=== PATIENT | male | born 1940 | race Caucasian/White ===

== ENCOUNTER 2017-04-14 16:38 | Inpatient (IN) | payer MEDICARE, OTHER ==
[~2017-04-14] VITALS: Ht 160 cm; Wt 90.7 kg
[2017-04-14 16:59] VITALS: BP 129/89; PULSE 102; RESP 12; O2SAT 99
--- NOTE | 2017-04-14 19:06 | ED.REPORT ---
HPI- Male Date of Service April 14, 2017 ED Provider: Jos Joiner MD The pt is a 77 y/o male w/ a hx of HTN and mild hyperlipidemia presenting to the ED complaining of increased urinary frequency onset 4 days ago. He only experiences this during the night and is normal during the day. He also reports experiencing chills (onset this afternoon), fever, and hematuria. He takes 25 mg of atenolol and baby aspirin daily, and took two Tylenol this morning. He had a biopsy of his prostate done and was told a sample had cancer by a Dr. Ware, urologist. Denies, dysuria, cough, SOB, nausea, vomiting, back pain, changes in eating or drinking habits. He has not experienced anything like this before. Nursing Notes Stated Complaint: FEVER/SHAKING/BLOOD IN URINE Chief Complaint: Increased urinary frequency Nursing Notes Reviewed: Yes ([employer], meds not reconciled) Allergies: Coded Allergies: No Known Allergies (Unverified , 04/14/17) General Time Seen by MD: 19:01 Chief Complaint Urinary frequency (Increased) Hx Obtained From: Patient Arrived By: Walk-in Onset Occurred: 4 days ago Recent Healthcare: No recent hospitalization, Recent doctor visit Similar Sx Previous: No Past Medical History Past Medical History Obesity Hypertension Mild hyperlipidemia History of elbow joint displacement History of tubular adenoma/colon polyp in 2002 Past Surgical History Status post colonoscopy September 2010 with diverticulosis left: Smoking History Never Smoker Social History Alcohol Use: Denies alcohol use Other Social History: Good social support Ambulatory Status Independent Review of Systems Denies changes in eating or drinking habits Constitutional: Reports: Chills, Fever GI: Denies: Vomiting Male: Reports Hematuria, Reports Urinary frequency (Increased), Denies Dysuria Musculoskeletal: Denies: Back pain Complete sys rev & neg: except as marked. Respiratory: Denies: Non-productive cough, Shortness of breath Physical Exam Initial Vital Signs Vital Signs (First) Date Time Temp Pulse Resp B/P Pulse Ox O2 Delivery O2 Flow Rate FiO2 04/14/17 16:59 38.4 102 12 129/89 99 Room Air Initial VS: Reviewed, Vital signs abnormal (febrile, tachycardic) Male Genitourinary: No mass, No hernia General/Constitutional: Awake, Alert Non toxic Appears well despite having shaking rigors Abdomen: Atraumatic, Soft, Non-tender Skin: Atraumatic, Color NL, No rash, Warm, Dry Head / Eyes: Atraumatic, Normocephalic ENT: Atraumatic, Airway patent Neck: Atraumatic, Supple, Full range of motion Respiratory / Chest: Atraumatic, Breath sounds NL, Breath sounds = bilat, No respiratory distress, No rales, No rhonchi, No wheezing Cardiovascular: Regular rhythm, Heart sounds NL, Peripheral circulation NL Heart Rate / Rhythm: Positive: Tachycardia (Mild) Back: Atraumatic, Full range of motion Neurologic: Oriented X3, Speech NL Mentating normally Psychiatric: Affect NL, Mood NL Interpretation & Diagnostics Lab Results Interpretation Result Diagram: 04/14/17 1937 04/14/17 193 Test 04/14/17 19:26 04/14/17 19:37 04/14/17 20:09 Urine Color Yellow (YELLOW) Urine Appearance Clear (CLEAR,HAZY) Urine pH 5.5 (5.0-8.0) Urine Specific [place] 1.020 (1.003-1.035) Urine Protein 30mg/dL (NEG,TRACE) Urine Glucose (UA) Negativemg/dL (NEGATIVE) Urine Ketones Tracemg/dL (NEGATIVE) Urine Occult Blood Moderate (NEGATIVE) Urine Nitrite Negative (NEGATIVE) Urine Bilirubin Negative (NEGATIVE) Urine Urobilinogen Normalmg/dL (NORMAL) Urine Leukocyte Esterase Negative (NEGATIVE) Urine RBC 3-10/hpf (0-2) Urine WBC 0-5/hpf (0-5) Urine Epithelial Cells Few/hpf (NONE-MOD) Urine Crystals None seen (NONE SEEN) Urine Bacteria Few/hpf (NONE-FEW) Urine Hyaline Casts None/lpf (NONE) Urine Granular Casts None seen (NONE SEEN) Urine Waxy Casts None seen (NONE SEEN) Urine Red Blood Cell Casts None seen (NONE SEEN) Urine White Blood Cell Casts None seen (NONE SEEN) Urine Mucus Present (None Seen) Urine Trichomonas None seen (NONE SEEN) Urine Yeast None (NONE SEEN) Urinalysis Comment Amorphous sediment Urine Culture Reflexed Not indicated White Blood Count 12.8th/mm3 (3.8-10.1) Red Blood Count 5.17mil/mm3 (4.40-5.80) Hemoglobin 16.0g/dL (13.8-17.2) Hematocrit 47.8% (41.0-50.0) Mean Corpuscular Volume 92.5fL (81-100) Mean Corpuscular Hemoglobin 30.9pg (27.0-35.0) Mean Corpuscular Hemoglobin Concent 33.5% (32.0-37.0) Red Cell Distribution Width 12.8% (12.3-15.4) Platelet Count 206bil/L (150-400) Neutrophils (%) (Auto) 74.9% (40-74) Lymphocytes (%) (Auto) 11.5% (14-46) Monocytes (%) (Auto) 12.7% (4-12) Eosinophils (%) (Auto) 0.2% (0-5) Basophils (%) (Auto) 0.5% (0-3) Prothrombin Time 11.2sec (8.1-12.5) Prothromb Time International Ratio 1.05ratio Sodium Level 133mEq/L (134-144) Potassium Level 4.4mEq/L (3.5-5.2) Chloride Level 94mEq/L (97-108) Carbon Dioxide Level 22mmol/L (18-29) Blood Urea Nitrogen 29mg/dL (8-27) Creatinine 1.31mg/dL (0.76-1.27) Estimat Glomerular Filtration Rate 56mL/min (>59) Glucose Level 122mg/dL (60-99) Lactic Acid Level 2.5mmol/L (0.4-2.0) Calcium Level 9.2mg/dL (8.5-10.1) Magnesium Level 2.0mg/dL (1.6-2.6) Total Bilirubin 0.4mg/dL (0.0-1.2) Aspartate Amino Transf (AST/SGOT) 27U/L (0-50) Alanine Aminotransferase (ALT/SGPT) 18U/L (0-44) Alkaline Phosphatase 64U/L (25-160) Total Protein 7.9g/dL (6.4-8.4) Albumin 3.9g/dL (3.4-5.0) Lipase 11U/L (13-60) Hold Brian Top Tube Received (Received) Lab Results Interpretation: CBC leukocytosis CMP mild renal insufficiency, uncertain baseline Lactic acid elevated Blood cultures pending Urinalysis without overt markers of jonathan infection ECG Interpretation ECG Interpretation: Rate 102 sinus tachycardia No acute ischemic changes Time: 19:48 Interpreted by: ED physician X-Ray Chest Interpretation Chest Xray Interpretation: IMPRESSION: No acute cardiopulmonary disease process. Dictated by: Tere Sterling MD, PhD on 04/14/2017 at 19:49 Approved by: Tere Sterling MD, PhD on 04/14/2017 at 19:50 View: Portable, 1 view Interpretation / Wet Read by: Interpret - Radiologist Re-Eval/Medical Decision Med Decision/Clinical Course This is a pleasant 77-year-old male presents with some urinary symptoms followed by the onset of jonathan rigors. Patient went to urgent care, and was having rigors and a fever there and was sent to the ED. When I did interview him he is having rigors during the interview. Despite this , he does not actually appear toxic. He is still energetic despite the rigors and hoping to go home. His lungs are clear, heart tones are normal, he denies nausea, vomiting abdominal or back pain. He has no other clinical source evident. No rashes, no respiratory symptoms. Workup was pursued. Her blood work was notable for both leukocytosis, renal insufficiency, and an elevated lactic acid. I markers for developing sepsis in a patient with jonathan fever and rigors. This highly suspicious for a urinary source, but the formal urinalysis is without clear markers of infection. A chest x-ray is negative, and given the urinary symptoms a bladder scan was obtained, the patient has less than 100 mL post void residual was no evidence of urinary retention. A CT KUB is being obtained. Given all of the laboratory markers, the ongoing rigors, and the absence of a definitive source-I recommended admission and empiric antibiotic coverage. The [facility] sepsis of unknown source protocol was employed. The patient is being admitted for continued management. He received IV fluids and Tylenol in the department and is looking in clinically improved further with the resolution of the rigors at time of admission. CT KUB was negative for intra-abdominal pathology, but is being read as suspicious for a couple areas at the base of the lungs with patchy infiltrates suspicious for pneumonia-the patient avidly denies any respiratory symptoms, so the clinical reliability of this is a focus of infection remains suspect Source of Hx: Old records Re-Evaluation/Progress : Time of Eval: 21:38 Re-Evaluation/Progress Note: Pt rechecked. Informed pt of need for admission. Pt understands and agrees with plan for admission. All questions addressed. Consultation : Referral / Consult Name: Devin Fernandes MD Consulted With: Hospitalist Call Returned at: 21:31 Surgery Manager: Will see patient, Agrees with eval, Agrees with plan, Accepts admit Differential Diagnosis: Negative: Abrasion, Abscess, Bladder outlet obstruct, Cellulitis, Laceration, Necrotizing fasciitis, Syphilis, Testicular torsion left , Torsion, appendix testis, Urinary retention, Urolithiasis Counseled Regarding: Diagnosis, Lab results, Need for follow-up, When/why to return to ED Discharge & Departure Impression: Primary Impression: Sepsis Sepsis type: sepsis due to unspecified organism Qualified Code: A41.9 - Sepsis, unspecified organism Additional Impressions: Rigors Elevated lactic acid level Acute kidney injury Fever and chills Pulmonary infiltrate present on computed tomography Disposition: ADMITTED TO HOSPITAL Discharge Condition All VS Reviewed: Yes Condition: Stable Referrals: Dino Murguia MD (PCP) Scribe Attestation Portions of this note were transcribed by Patricio Grubbs. I, Dr. Joiner personally performed the history, physical exam and medical decision-making; I reviewed and confirmed the accuracy of the information in the transcribed note. Signed by : Irina Segundo, 04/14/17 and 2111. copies to: Dino Murguia MD, Matthew F MD April 14, 2017 19:06 Patricio Grubbs April 14, 2017 20:59
[2017-04-14] MEDS ORDERED: cefTRIAXone Inj 2,000 MG in Dextrose 5% Minibag Plus 50 ML IV ONE (19:20)
--- NOTE | 2017-04-14 19:51 | DRSVH ---
PROCEDURE: X-RAY CHEST ONE VIEW, PORTABLE ([id number]) INDICATIONS: fever TECHNIQUE: One view of the chest was acquired. COMPARISON: None. FINDINGS: Surgical changes and devices: None. Lungs and pleura: No pleural effusions or pneumothorax. Lungs are clear. Mediastinum: Mediastinal contours appear normal. Heart size is normal. Bones and chest wall: No suspicious bony lesions. Overlying soft tissues appear unremarkable. IMPRESSION: No acute cardiopulmonary disease process. Dictated by: Tere Sterling MD, PhD on 04/14/2017 at 19:49 Approved by: Tere Sterling MD, PhD on 04/14/2017 at 19:50
[2017-04-14 19:52] LABS: BASOPHILS % (AUTO) 0.5 % (0-3); EOSINOPHILS % (AUTO) 0.2 % (0-5); MONOCYTES % (AUTO) 12.7 % (4-12); Mean Corpuscular Hemoglobin 30.9 pg (27.0-35.0); Mean Corpuscular Volume 92.5 fL (81-100); NEUTROPHILS % (AUTO) 74.9 % (40-74); Platelet Count 206 bil/L (150-400)
[2017-04-14 19:54] LABS: APPEARANCE,URINE CLEAR (CLEAR,HAZY); COLOR,URINE YELLOW (YELLOW); OCCULT BLOOD,URINE MODERATE (NEGATIVE); PH,URINE 5.5 (5.0-8.0); UROBILINOGEN,URINE NORMAL (NORMAL)
[2017-04-14 20:09] LABS: INR 1.05 ratio
[2017-04-14 21:07] VITALS: BP 137/88; PULSE 104; RESP 18; O2SAT 95
[2017-04-14] MEDS ORDERED: Lidocaine 2% 6mL Topical Jelly TOPICAL ONE (21:20)
[2017-04-14] MEDS ORDERED: Vancomycin Dose per Pharmacist XX ONE (21:25)
[2017-04-14] MEDS ORDERED: Doxycycline Inj 100 MG in Dextrose 5% 100 ML IV ONE ×2 (21:25→22:15)
[2017-04-14] MEDS ORDERED: Tobramycin per Pharmacist XX ONE (21:25)
[2017-04-14] MEDS ORDERED: Piperacillin-Tazo 3.375 Gm Inj 3.375 GM in Dextrose 5% Minibag Plus 50 ML IV ONE (21:25)
[2017-04-14] MEDS ORDERED: Ondansetron 2 mg/mL 2 mL Inj IVPUSH PRN (21:35)
[2017-04-14] MEDS ORDERED: Alum-Mag Hydrox-Simeth 30 mL Suspension PO PRN (21:35)
[2017-04-14] MEDS ORDERED: Vancomycin Inj 1,750 MG in 0.9% Sodium Chloride 500 ML IV ONE (21:35)
[2017-04-14] MEDS ORDERED: Polyethylene Glycol (PEG) 17 Gm Powder PO PRN (21:35)
[2017-04-14] MEDS ORDERED: 0.9% Sodium Chloride 1,000 ML IV SCH (21:35)
[2017-04-14] MEDS ORDERED: Vancomycin Dose per Pharmacist XX SCH (21:35)
[2017-04-14] MEDS ORDERED: TOBRAMYCIN IV SCH (21:40)
[2017-04-14] MEDS ORDERED: [UNRECOGNIZED DRUG - REMARK] XX ONE (21:40)
[2017-04-14] MEDS ORDERED: [UNRECOGNIZED DRUG - REMARK] XX SCH (21:40)
[2017-04-14] MEDS ORDERED: DEXTROSE 5% IV SCH (21:40)
--- NOTE | 2017-04-14 21:46 | DRSVH ---
PROCEDURE: CT KUB ([id number]) INDICATIONS: pain, fever TECHNIQUE: Noncontrast 5 mm thick sections acquired from the diaphragms to the symphysis. 5 mm thick coronal an d sagittal reformats were then performed. For radiation dose reduction, the following was used: aut omated exposure control, adjustment of mA and/or kV according to patient size. COMPARISON: [facility], CR, XR CHEST 1VW (PORTABLE), 04/14/2017, 19:06. FINDINGS: Image quality: Excellent. Lung bases: Small patchy airspace opacity noted in the visualized right lung base suspicious for pne umonia. Heart size is normal. Urinary system: Both kidneys are normal in size. No kidney stones. No hydronephrosis or perinephri c fat stranding. Both ureters appear non-dilated throughout their expected courses. Bladder wall th ickness is normal; no calcified bladder stones. Prostate gland is enlarged. Other solid organs: Liver and spleen are normal in size. All hypoattenuating lesions noted in the li elsa which may represent cysts, however lesions cannot be definitively characterize without the benefi t of intravenous contrast. Gallbladder is within normal limits. Pancreas is normal in contours. No adrenal nodules. Peritoneum and bowel: Unenhanced bowel loops demonstrate normal wall thickness and caliber. Numerous diverticuli noted in the colon without evidence of diverticulitis. No free fluid or air. The appendi x is normal. Nodes and vessels: No retroperitoneal or mesenteric adenopathy by size criteria. Aorta and inferior vena cava are normal in caliber. Scattered atherosclerotic calcifications are noted in the abdominal and pelvic vasculature. Abdominal wall: Fat containing umbilical ventral hernia noted. Pelvis: No free pelvic fluid. No adenopathy. Small bilateral fat containing inguinal hernias. Bones: No suspicious bony lesions. No vertebral body compression fractures. Spine degenerative disc disease and facet arthropathy are noted. IMPRESSION: 1. No renal stones or hydronephrosis. 2. Patchy airspace opacities in the right lung base suspicious for pneumonia. 3. Indeterminate low attenuating hepatic lesions. Dictated by: Tere Sterling MD, PhD on 04/14/2017 at 21:38 Approved by: Tere Sterling MD, PhD on 04/14/2017 at 21:44
[2017-04-14 23:04] VITALS: BP 125/78; PULSE 110; RESP 18; O2SAT 95
[2017-04-14 23:43] VITALS: BP 128/85; PULSE 102; RESP 18; O2SAT 94
[2017-04-15] VITALS (11 sets, daily range): BP systolic 94–173; BP diastolic 61–93; PULSE 87–160; RESP 18–30; O2SAT 91–96
[2017-04-15] MEDS: 0.9% Sodium Chloride 1,000 ML IV SCH ×3 (00:01→13:35)
[2017-04-15] MEDS: Sodium Chloride LOK Flush 10 mL Syringe IVFLUSH SCH ×3 (00:30→16:30)
--- NOTE | 2017-04-15 01:51 | PCM.HPMED ---
Subjective Date of Service April 14, 2017 Primary Provider: Admitting Physician: Primary Care Physician: Dino Murguia MD Attending Physician: Admit Status: From the Emergency Department, Full Admit, Remote Telemetry Chief Complaint: Chills with urinary symptoms History of Present Illness: Lucio Marie is a 77 y/o male with Hypertension, Hyperlipidemia and BPH presenting to [facility] emergency department complaining of increased urinary frequency onset 4 days ago. Main issue is difficulty initiating a stream when he tries to urinate. The symptoms are persistent with nocturia and polyuria. He only experiences this during the night and is normal during the day. Associated symptoms include chills (onset this afternoon), fever, and hematuria. He took some tylenol with help a little He had a biopsy of his prostate done and was told a sample had cancer by a Dr. Ware, urologist. He was also told he has a enlarged prostate. Denies any weight loss. Case discussed with Dr Joiner, meeting sepsis criteria due to leukocytosis, tachycardia and Fever. IV fluids and broad spectrum antibiotics initiated. Review of Systems: Pertinent positives as noted in HPI. All other systems were reviewed and are negative Allergies Coded Allergies: No Known Allergies (Unverified , 04/14/17) Home Medications From [facility], not yet confirmed Lucio Marie [id number] 1940 04/14/2017 03:45 PM 12/01 aspirin 81 mg Tab, Delayed Release take 1 tablet (81MG) by ORAL route every day ATENOLOL 50MG TAB TAKE ONE-HALF TABLET BY MOUTH ONCE DAILY FOR HEART garlic 400 mg tablet take one a day Multi-Day tablet take 1 tablet by oral route every day with food Niacin Flush Free 400 mg niacin (500 mg) capsule take 1 capsule orally daily. omega-3 fatty acids-fish oil 340 mg-1,000 mg capsule take 1 by Oral route every day TRIAMT/HCTZ 37.5-25MG TAB TAKE ONE-HALF TABLET BY MOUTH ONCE DAILY FOR HIGH BLOOD PRESSURE. Vitamin D3 400 unit tablet take 1 tab by oral route 1 time a day vitamin E 400 unit capsule take 1 capsule orally daily. PMH Hypertension Hyperlipidemia Benign Prostatic Hypertrophy Obesity . Surgical History Tonsillectomy Polypectomy Family History Father had [place] age 57 Mother had emphysema Social History Hx Alcohol Use: No Hx Substance Use: No Hx Tobacco Use: No Smoking Status: Never Smoker Living Arrangement: with Family (with ) Exam Vital Signs Vital Sign - Last Date Time Temp Pulse Resp B/P Pulse Ox O2 Delivery O2 Flow Rate FiO2 04/14/17 21:07 37.4 104 18 137/88 95 Room Air Exam General: Alert, Oriented X3, Cooperative, No acute Distress Eyes: PERRLA, Scleral Anicteric Mouth: Mouth Normal, Mucous Membranes Moist/[place] Neck: Supple, no Thyromegaly, trachea central. Chest & Lungs: Clear to auscultation & percussion, No adventitious breath sounds, no crackles, no wheeze Cardiovascular: Normal S1, Normal S2, No Murmurs/Rubs/Gallops, Regular Rate/ Rhythm (No JVD, no peripheral edema) Pulses: Radial (present and equal), Dorsalis Pedi (present and equal) Abdomen: Soft, Non-tender, Non-distended, Normoactive bowel tones. Musculoskeletal: Unremarkable. Normal range of motion, no swollen or erythematous joints Extremities: No edema, no cyanosis, no clubbing. Skin: No rashes. Warm and dry, no erythematous areas Neurological: Grossly neurologically intact, Normal Speech, Sensation Intact Lymphatic: Lymph nodes Cervical and Axillary not palpable. Lab and Diagnostics Labs Laboratory Tests Test 04/14/17 19:26 04/14/17 19:37 04/14/17 20:09 Urine Color Yellow (YELLOW) Urine Appearance Clear (CLEAR,HAZY) Urine pH 5.5 (5.0-8.0) Urine Specific [place] 1.020 (1.003-1.035) Urine Protein 30mg/dL (NEG,TRACE) Urine Glucose (UA) Negativemg/dL (NEGATIVE) Urine Ketones Tracemg/dL (NEGATIVE) Urine Occult Blood Moderate (NEGATIVE) Urine Nitrite Negative (NEGATIVE) Urine Bilirubin Negative (NEGATIVE) Urine Urobilinogen Normalmg/dL (NORMAL) Urine Leukocyte Esterase Negative (NEGATIVE) Urine RBC 3-10/hpf (0-2) Urine WBC 0-5/hpf (0-5) Urine Epithelial Cells Few/hpf (NONE-MOD) Urine Crystals None seen (NONE SEEN) Urine Bacteria Few/hpf (NONE-FEW) Urine Hyaline Casts None/lpf (NONE) Urine Granular Casts None seen (NONE SEEN) Urine Waxy Casts None seen (NONE SEEN) Urine Red Blood Cell Casts None seen (NONE SEEN) Urine White Blood Cell Casts None seen (NONE SEEN) Urine Mucus Present (None Seen) Urine Trichomonas None seen (NONE SEEN) Urine Yeast None (NONE SEEN) Urinalysis Comment Amorphous sediment Urine Culture Reflexed Not indicated White Blood Count 12.8th/mm3 (3.8-10.1) Red Blood Count 5.17mil/mm3 (4.40-5.80) Hemoglobin 16.0g/dL (13.8-17.2) Hematocrit 47.8% (41.0-50.0) Mean Corpuscular Volume 92.5fL (81-100) Mean Corpuscular Hemoglobin 30.9pg (27.0-35.0) Mean Corpuscular Hemoglobin Concent 33.5% (32.0-37.0) Red Cell Distribution Width 12.8% (12.3-15.4) Platelet Count 206bil/L (150-400) Neutrophils (%) (Auto) 74.9% (40-74) Lymphocytes (%) (Auto) 11.5% (14-46) Monocytes (%) (Auto) 12.7% (4-12) Eosinophils (%) (Auto) 0.2% (0-5) Basophils (%) (Auto) 0.5% (0-3) Prothrombin Time 11.2sec (8.1-12.5) Prothromb Time International Ratio 1.05ratio Sodium Level 133mEq/L (134-144) Potassium Level 4.4mEq/L (3.5-5.2) Chloride Level 94mEq/L (97-108) Carbon Dioxide Level 22mmol/L (18-29) Blood Urea Nitrogen 29mg/dL (8-27) Creatinine 1.31mg/dL (0.76-1.27) Estimat Glomerular Filtration Rate 56mL/min (>59) Glucose Level 122mg/dL (60-99) Lactic Acid Level 2.5mmol/L (0.4-2.0) Calcium Level 9.2mg/dL (8.5-10.1) Magnesium Level 2.0mg/dL (1.6-2.6) Total Bilirubin 0.4mg/dL (0.0-1.2) Aspartate Amino Transf (AST/SGOT) 27U/L (0-50) Alanine Aminotransferase (ALT/SGPT) 18U/L (0-44) Alkaline Phosphatase 64U/L (25-160) Total Protein 7.9g/dL (6.4-8.4) Albumin 3.9g/dL (3.4-5.0) Lipase 11U/L (13-60) Hold Brian Top Tube Received (Received) Microbiology 04/14/17 Blood Culture, Received Pending Result Diagram: 04/14/[id number] X-Rays, CTs and MRIs X-RAY CHEST ONE VIEW, PORTABLE 04/14 IMPRESSION: No acute cardiopulmonary disease process. Dictated by: Tere Sterling MD, PhD on 04/14/2017 at 19:49 Approved by: Tere Sterling MD, PhD on 04/14/2017 at 19:50 CT KUB 04/14 IMPRESSION: 1. No renal stones or hydronephrosis. 2. Patchy airspace opacities in the right lung base suspicious for pneumonia. 3. Indeterminate low attenuating hepatic lesions. Dictated by: Tere Sterling MD, PhD on 04/14/2017 at 21:38 Approved by: Tere Sterling MD, PhD on 04/14/2017 at 21:44 Assessment & Plan Lucio Marie is a 77 y/o male with Hypertension, Hyperlipidemia and BPH presenting to [facility] emergency department complaining of increased urinary frequency 1. Severe Sepsis. Present on admission Meeting criteria with Leukocytosis, Fever and tachycardia with a urinary source. Lactic acidosis indicates organ dysfunction - early antibiotics initiation - IV fluids resuscitations with Sepsis protocol - close monitoring of vitals 2. Possible Urinary infection or Acute Prostatitis. Present on admission - continue empiric antibiotics with Vancomycin and Zosyn - Patient received Doxycycline which will be held - Blood cultures, Urine cultures - consider Infection disease and Urology consult 3 Lactic acidosis. Present on admission Due to tissue hypoxia from sepsis - trending till normal 4. Hypertension. Chronic - holding all antihypertensive till sepsis resolves to avoid hypotension - Acetaminophen as needed for mild pain/fever/headache - Bowel regimen as needed - Antiemetic as needed Patient admitted under inpatient status with expected length of stay > 2 midnights for severity of present symptoms, complexities of treatment plan and risk for adverse event . Resuscitation Status: CPR: Attempt Resuscitation Devin Fernandes MD April 14, 2017 21:40
[2017-04-15] MEDS ORDERED: Piperacillin-Tazo 3.375 Gm Inj 3.375 GM in Dextrose 5% Minibag Plus 50 ML IV ONE (02:23)
[2017-04-15] MEDS: Heparin 5,000 Unit/mL Inj SUBQ SCH ×3 (02:29→17:10)
[2017-04-15] MEDS ORDERED: HYDR25TA4 PO (03:14)
[2017-04-15] MEDS ORDERED: vitamin D PO (03:14)
[2017-04-15] MEDS ORDERED: OMEG500C PO (03:14)
[2017-04-15] MEDS ORDERED: Niacin PO (03:14)
[2017-04-15] MEDS ORDERED: VITA400C64 PO (03:14)
[2017-04-15] MEDS ORDERED: MULT-544 PO (03:14)
[2017-04-15] MEDS ORDERED: ASPI-973 PO (03:14)
[2017-04-15] MEDS ORDERED: ATEN50TA PO (03:14)
[2017-04-15] MEDS ORDERED: potassium PO (03:14)
[2017-04-15] MEDS ORDERED: TRIA1TAB3 PO (03:18)
--- NOTE | 2017-04-15 06:21 | NUR ---
Admit Note/Tele Pt arrived to room 3020 at around 2330, denied pain and appeared to be in no distress. Per engineering technician on arrival pt's tele Afib 130s-150s, pt denied symptoms, MD aware. Per MT, pt converted back to SR soon after w/ rate 100s and also converted back and forth a couple times in night w/ rate in 100s. Last couple times reassessed pt has been STach 100s. Continues to deny symptoms of this. BP stable, fluids and antibiotics started per orders. Pt A&O and able to provide admit information though was unsure of some meds and doses. Pt states can bring med containers to confirm in morning. External med history also used for reference.
--- NOTE | 2017-04-15 06:54 | PCM.CONPHA ---
Subjective Date of Service: April 15, 2017 Requesting Provider: Devin Fernandes MD sepsis History of Present Illness Sepsis, possible UTI or prostatitis Reason for Pharmacy Consult: Vancomycin Dosing Objective Assessment/Plan Assessment/Plan A/ - 77 y/o male patient admitted in late last night for sepsis, possible related to UTI or prostatitis, required Vancomycin therapy for empirical coverage - Afebrile, shocky. WBC: 12.8, blood cultures (x2) pending - In ED, received loading dose of Vancomycin 1750mg iv @ 0000 04/15, and one time dose of Doxycycline, along with Zosyn which to be continued - Wt: 89.9kg, ht: 160cm, SCr: 1.31 mg/dL (unknown baseline), estimated clearance ~ 49ml/min, BMI: 34 kg/m2, Vd~54 L - IVF @125 ml/hr P/ - Give Vancomycin 750mg iv q12h. Trough level ordered before 3rd dose @2330 / 20 Pharmacy will continue to follow and make necessary adjustment according to patient's clinical responses. Thank you for consulting clinical pharmacy in the care of this patient Db Dockery PharmD, [facility] Conrado Dockery April 15, 2017 06:54
--- NOTE | 2017-04-15 10:35 | NUR ---
Social Work: Initial Assessment D: EMR reviewed. Pt is a 77 y/o male admitted for fever, elevated lactic acid per H&P. SW met with pt at bedside to conduct initial assessment. Pt was alert and oriented x3. SW explained role and wrote phone number on white board. Pt's insurance is Medicare with [employer] and PCP is Dino Murguia MD. Pt's DPOA is spouse Tawanna Marie ([phone]) and can be contacted for discharge planning. Pt has no LTC or VA insurance. Pt has not HH or SNF Hx. Pt confirmed he has completed DPOA/advanced directive ppw and provided a copy to the hospital on arrive. Pt is independent with ADLs and does not use any DME. Pt drives. Pt is independent at baseline. Pt lives at home with his spouse in [place]. Pt has no re-jovita score. SW does not anticipate any discharge needs at this time. Pt to transport home with spouse via POV when medically stable. SW will continue to follow if needs arise. A: Pt who is independent at baseline P: Pt to discharge home with spouse via POV when medically stable. SW does not anticipate and discharge needs at this time. SW will continue to follow if needs arise. MATT Gaitan Addendum: 04/15/17 at 1042 by KENNETH ARREDONDO SS Amended: Links added.
[2017-04-15] MEDS ORDERED: Vancomycin Inj 750 MG in 0.9% Sodium Chloride 250 ML IV SCH (12:00)
[2017-04-15] MEDS ORDERED: Piper-Tazo 3.375 Gm/50 mL D5W Minibag Plus - Q8H over 4 hrs IV SCH ×2 (14:00)
--- NOTE | 2017-04-15 18:25 | NUR ---
Afib Call from Tele monitor, reports pt in Afib rate of 130-150. Pt assessed, no complains of chest discomfrt/pressure. paged and called back, will review current rate with ct scan special procedures technologist and generate order. Will continue to monitor. Addendum: 04/15/17 at 1911 by KRISTEN VARGAS RN STAT EKG completed, pt to be transferred to [facility]. to generate order.
[2017-04-15] MEDS: Diltiazem Inj 125 MG in 0.9% Sodium Chloride 100 ML, Pharmacy To Mix 1 EA IV SCH (19:15)
[2017-04-15] MEDS ORDERED: Diltiazem 5 mg/mL 5 mL Inj IVPUSH ONE (19:15)
--- NOTE | 2017-04-15 19:50 | NUR ---
transfer patient transferred to 2003. bedside report to leandra ellison patient agreed to call family and notify them of room change. all belongings transferred with patient
--- NOTE | 2017-04-15 21:00 | PCM.PNMED ---
Subjective Date of Service April 15, 2017 Subjective Patient is feeling much better. He no longer has chills or shaking chills. He no longer has fever. However, he appears quite anxious as he has never been hospitalized before in his lifetime. He has no new complaints. Exam Vital Signs Vital Sign - Last Date Time Temp Pulse Resp B/P Pulse Ox O2 Delivery O2 Flow Rate FiO2 04/15/17 19:19 38.9 160 18 123/81 91 Room Air Intake and Output 04/14/17 04/14/17 04/15/17 Cumulative From/Thru 15:00 23:00 07:00 04/14/17 16:59 - 04/14/17 23:43 Bladder Scan Volume Amount 324 MLS. 125 Exam General: Patient appears anxious sitting up on the side of his bed. HEENT: Head is atraumatic and normocephalic. Eyes: Pupils are equally round and reactive to light and accommodation. Extraocular muscles are intact. Sclera are white, anicteric. Subconjunctival mucosa is pink. Ears and nose are unremarkable. Oropharynx: There is no mucosal lesions, there is no thrush, there is no pharyngitis. Neck: Is supple, there are no nodes, or masses or tenderness. Chest: Is clear to auscultation and percussion. There are no rales, rhonchi, wheezes or rubs. Heart: Rate, rhythm is regular. There is no murmur, rub or gallop. Abdomen: Good bowel sounds are present. Abdomen is soft, nontender, no organomegaly or masses were appreciated. Extremities: Are symmetrical and well perfused. There is no edema, there is no cellulitis, no rash. Neurologic: There are no focal neurological deficits. Cranial nerves II through XII are intact. There are no sensory or motor deficits. Psychiatric: Patients mood is somewhat anxious. Genital: Deferred Rectal: Deferred Lab and Diagnostics Result Diagram: 04/14/17193604/14/171936 Microbiology Blood cultures are pending X-Rays, CTs and MRIs X-RAY CHEST ONE VIEW, PORTABLE 04/14 IMPRESSION: No acute cardiopulmonary disease process. Dictated by: Tere Sterling MD, PhD on 04/14/2017 at 19:49 Approved by: Tere Sterling MD, PhD on 04/14/2017 at 19:50 CT KUB 04/14 IMPRESSION: 1. No renal stones or hydronephrosis. 2. Patchy airspace opacities in the right lung base suspicious for pneumonia. 3. Indeterminate low attenuating hepatic lesions. Dictated by: Tere Sterling MD, PhD on 04/14/2017 at 21:38 Approved by: Tere Sterling MD, PhD on 04/14/2017 at 21:44 Assessment & Plan Lucio Marie is a 77 y/o male with Hypertension, Hyperlipidemia and BPH presenting to [facility] emergency department complaining of increased urinary frequency # Severe Sepsis. Present on admission Meeting criteria with Leukocytosis, Fever and tachycardia with a urinary source. Lactic acidosis indicates organ dysfunction - Etiology could be due to right lower lobe pneumonia or prostatitis or both - CT scan shows evidence of right lower lobe pneumonia and an enlarged prostate. - IV antibiotics have been started with vancomycin and Zosyn. We will continue for now and streamline as appropriate. - IV fluids resuscitations with Sepsis protocol - Continue close monitoring of vitals # Possible Urinary infection or Acute Prostatitis. Present on admission - However, urinalysis is unremarkable - We will continue empiric antibiotics with Vancomycin and Zosyn and streamline as appropriate - Patient received Doxycycline which will be held - Blood cultures are pending. Urine cultures are not indicated - May consider Infection disease and Urology consult - Check PSA level, if markedly elevated would favor prostatitis - Patient requests medication to help his prostate enlargement. Therefore will start Flomax 0.4 mg by mouth daily at bedtime. # Lactic acidosis. Present on admission, resolving Due to tissue hypoxia from sepsis - We have trended till normal # Hypertension. Chronic - Initially all antihypertensive were held till sepsis resolves to avoid hypotension # New-onset atrial fibrillation with rapid ventricular response, sustained. - We will start an IV Cardizem drip after a 0.25 mg/kg bolus - Patient will be transferred to the [facility] - Check echocardiogram - Consider cardiology consultation - Acetaminophen as needed for mild pain/fever/headache - Bowel regimen as needed - Antiemetic as needed Disposition: Patient is likely to be her several more days for the evaluation and treatment of the above multiple problems. . Pain Evaluation: Adequate Pain Control GI Prophylaxis: Proton Pump Inhibitor VTE Prophylaxis: Sub-Q Heparin (Unfractionated) Resuscitation Status: CPR: Attempt Resuscitation NikoleRedd MD April 15, 2017 21:00
[2017-04-15] MEDS ORDERED: Vancomycin Serum Trough XX ONE (23:30)
[2017-04-16] VITALS (10 sets, daily range): BP systolic 94–114; BP diastolic 60–72; PULSE 76–119; RESP 16–30; O2SAT 92–96
[2017-04-16] MEDS: 0.9% Sodium Chloride 1,000 ML IV SCH ×4 (00:07→20:24)
[2017-04-16] MEDS ORDERED: Vancomycin Inj 1,500 MG in 0.9% Sodium Chloride 500 ML IV ONE (00:25)
[2017-04-16] MEDS: Sodium Chloride LOK Flush 10 mL Syringe IVFLUSH SCH ×4 (00:30→23:57)
[2017-04-16] MEDS: Piperacillin-Tazo 3.375 Gm Inj 3.375 GM in Dextrose 5% Minibag Plus 50 ML IV SCH ×4 (00:37→23:57)
[2017-04-16] MEDS: Heparin 5,000 Unit/mL Inj SUBQ SCH ×4 (00:42→23:59)
--- NOTE | 2017-04-16 01:39 | PCM.PHAPRO ---
Progress Date of Service: April 16, 2017 Requesting Provider: Devin Fernandes MD sepsis Sepsis, possible pneumonia A/ - 77 y/o male patient is receiving Vancomycin and Zosyn for empirical coverage to treat sepsis of possible pneumonia - Ruled out UTI, CT scan shows evidence of right lower lobe pneumonia and enlarged prostate - elevated SCr of 1.39 mg/dL on late 04/14, but no lab today. The I&O is good so I expected his renal function is improving - Low trough result at 7.8 with dose given and lab drawn at appropriate time P/ - Give one time Vancomycin booster dose of 1500mg iv. The following dose will be determined after am lab update: - SCr; 1.2 mg/dL today which improved from late 04/14 of 1.31. - Give Vancomycin 1G iv q12h, starts @0900 today, roughly 8 hrs from last booster dose. New trough level ordered @0830 on 04/17, hopefully with the booster and shorten admin time of following dose would bring up trough to above 15 Pharmacy will continue to follow and make necessary adjustment Thank you Conrado Moctezuma April 16, 2017 01:38
[2017-04-16 02:45] LABS: BASOPHILS % (AUTO) 0.2 % (0-3); EOSINOPHILS % (AUTO) 0.2 % (0-5); MONOCYTES % (AUTO) 11.6 % (4-12); Mean Corpuscular Hemoglobin 31.4 pg (27.0-35.0); Mean Corpuscular Volume 92.9 fL (81-100); NEUTROPHILS % (AUTO) 75.6 % (40-74); Platelet Count 179 bil/L (150-400)
[2017-04-16 03:47] LABS: ERYTHROCYTE SEDIMENTATION RATE 48 mm/hr (0-30)
--- NOTE | 2017-04-16 04:02 | NUR ---
Afib/Respiratory/Urinary Pt arrived to floor from [facility] at start of shift, per report pt was in Afib w/ rate 160s. Pt was also febrile and given tylenol prior to arrival. Pt arrived in no distress and denied any symptoms of HR. When hooked up to MP30 on [facility] pt noted to be in SR. HR in lower 100s. MD notified and stated to hold off on cardizem and instead give Atenolol dose. Soon after speaking to MD pt converted back into AFib, MP30 in pt room showed rate reaching 160s, but mostly sustaining 130s-140s. Pt denied any symptoms, RR 30s to low 40s, though pt continually denied SOB. MD notified and stated to give previously ordered Cardizem IV push and start drip. Shortly after Cardizem IV push given pt converted to SR and remained there w/ rate maintaining under 100. Cardizem drip not initiated, aware and stated to give Atenolol dose. BP stable throughout and pt remains in SR now w/ rate in 70s-80s. RR now in 20s, increased w/ activity, pt w/ occasional expiratory wheezing, mostly w/ activity and sounding a little congested this morning. Pt continues on 2L NC and sats continuously monitored. Pt continues to frequently urinate small amounts, PVR this morning was 291mL. Pt denies discomfort.
[2017-04-16] MEDS ORDERED: Vancomycin Inj 1,000 MG in IV Premix 1 EACH IV SCH (09:00)
[2017-04-16] MEDS: Pantoprazole 40 mg ER24 Tablet PO SCH (09:13)
--- NOTE | 2017-04-16 09:17 | PCM.PNMED ---
Subjective Date of Service April 16, 2017 Subjective Hosp day 2. Overnight fever 38.9C at 1919. Transferred to [facility] from [facility] d/t AFib RVR in the 160's. Tachypnea and borderline HoTN this AM. Some report from RN of wheezes. Reports UOP improved with Flomax administration. Reports overall "100%" better than admission. Reports prostate bx was >1 yr ago and "cancer" finding was reportedly "slow- growing." Reports increased nocturia (with minimal UOP/slow/interrupted stream for several nights prior to admission). Denies having CT/PET imaging in the past. ROS otherwise neg. Exam Vital Signs Vital Sign - Last Date Time Temp Pulse Resp B/P Pulse Ox O2 Delivery O2 Flow Rate FiO2 04/16/17 07:40 88 04/16/17 04:45 Supplement Oxygen 04/16/17 04:34 37.5 26 98/65 96 2.00 Intake and Output 04/15/17 04/15/17 04/16/17 Cumulative From/Thru 15:00 23:00 07:00 04/14/17 16:59 - 04/16/17 06:10 Intake Total 1490 ml 2098 ml 1999 ml 5587 ml Output Total 450 ml 1175 ml 820 ml 2445 ml Balance 1040 ml 923 ml 1179 ml 3142 ml Intake Oral 200 ml 1100 ml 300 ml 1600 ml IV Total 1290 ml 998 ml 1699 ml 3987 ml Output Urine Total 450 ml 1175 ml 820 ml 2445 ml # Voids 7 7 Exam General: Patient appears NAD sitting up in chair. HEENT: Head is atraumatic and normocephalic. Eyes: Pupils are equally round and reactive to light. Extraocular muscles are intact. Sclera are white, anicteric. Subconjunctival mucosa is pink. Ears and nose are unremarkable. Oropharynx: There is no mucosal lesions, there is no thrush, there is no pharyngitis. Neck: Is supple, there are no nodes, or masses or tenderness. Chest: Is clear to auscultation and percussion. There are no rales, rhonchi, wheezes or rubs. Normal resp rate/not tachypneic Heart: Rate, rhythm is regular on monitor. There is no murmur, rub or gallop. Abdomen: Good bowel sounds are present. Abdomen is soft, nontender, no organomegaly or masses were appreciated. Extremities: Are symmetrical and well perfused. There is no edema, there is no cellulitis, no rash. Neurologic: There are no focal neurological deficits. Cranial nerves II through XII are intact. There are no sensory or motor deficits. Psychiatric: Patients mood and affect are normal. Lab and Diagnostics Result Diagram: 04/16/17 0230 04/16/17 0230 Microbiology Blood cultures are pending X-Rays, CTs and MRIs X-RAY CHEST ONE VIEW, PORTABLE 04/14 IMPRESSION: No acute cardiopulmonary disease process. Dictated by: Tere Sterling MD, PhD on 04/14/2017 at 19:49 Approved by: Tere Sterling MD, PhD on 04/14/2017 at 19:50 CT KUB 04/14 IMPRESSION: 1. No renal stones or hydronephrosis. 2. Patchy airspace opacities in the right lung base suspicious for pneumonia. 3. Indeterminate low attenuating hepatic lesions. Dictated by: Tere Sterling MD, PhD on 04/14/2017 at 21:38 Approved by: Tere Sterling MD, PhD on 04/14/2017 at 21:44 Assessment & Plan Lucio Marie is a 77 y/o male with Hypertension, Hyperlipidemia and BPH presenting to [facility] emergency department complaining of increased urinary frequency. Hospital day 2. # Severe Sepsis. Present on admission, but improving Meeting criteria with Leukocytosis, Fever and tachycardia with a urinary source. Lactic acidosis indicates organ dysfunction - Etiology could be due to right lower lobe pneumonia or prostatitis or both - CT scan shows evidence of right lower lobe pneumonia and an enlarged prostate. - IV antibiotics have been started with vancomycin and Zosyn. Stopped vancomycin today (negative MRSA), but we will continue with Zosyn given uncertainty regarding source. - IV fluids resuscitations with Sepsis protocol initially. Stopped IVF maintenance today as by mouth intake was good. - Continue close monitoring of vitals -Of potentially stronger consideration is the right lower lobe opacity on CT scan, but patient did not present with any significant cough. However, pneumonia should be on the differential -Repeat pro calcitonin tomorrow # Possible Urinary infection or Acute Prostatitis. Present on admission - However, urinalysis is unremarkable which calls and the question all premise of UTI, or prostatitis - We will continue empiric antibiotics as noted above and streamline as appropriate - Patient received Doxycycline which will be held - Blood cultures negative. Urine cultures are not indicated - May consider Infection disease and Urology consult - Check PSA level (still pending), if markedly elevated would favor prostatitis - Patient requests medication to help his prostate enlargement. Therefore will continue Flomax 0.4 mg by mouth daily at bedtime. -Unclear why ESR/CRP elevated (nothing on ROS and exam to suggest rheum, inf etiologies). # Lactic acidosis. Present on admission, resolved Due to tissue hypoxia from sepsis - We have trended till normal # Of concern are the nonspecific hepatic lesions on CT. Prostate ca. can met to liver. Consider follow up CT vs PET. # Hypertension. Chronic - Initially all antihypertensive were held till sepsis resolves to avoid hypotension # New-onset atrial fibrillation with rapid ventricular response, sustained. - We will start an IV Cardizem drip after a 0.25 mg/kg bolus - Patient will be transferred to the [facility] - Check echocardiogram - Consider cardiology consultation - Acetaminophen as needed for mild pain/fever/headache - Bowel regimen as needed - Antiemetic as needed Patient is admitted under inpatient status with expected length of stay greater than 2 midnights due to severity of presenting symptoms, risk of adverse event, and complexity of treatment plan. Disposition: Anticipate discharge in 1-2 days (likely with some by mouth antibiotics to complete course). Pain Evaluation: Adequate Pain Control GI Prophylaxis: Proton Pump Inhibitor VTE Prophylaxis: Sub-Q Heparin (Unfractionated) Resuscitation Status: CPR: Attempt Resuscitation Attending Statement The patient was seen and examined together with Dr. Weiss on 04/16/2017 and I agree with the history, exam and plan as outlined in the note above. . Chino Monroe DO April 16, 2017 09:17 Phillip Anderson MD April 17, 2017 14:33
--- NOTE | 2017-04-16 09:20 | NUR ---
[facility] Signed
--- NOTE | 2017-04-16 10:15 | NUR ---
Social Work: Readiness for Discharge D: Pt discussed in am rounds. Pt was transferred to [facility] overnight. Pt continues to be I with ambulation. MD anticipates pt will be ready for d/c in 1-2 more days. P[employer]AGE SE[employer]ER MACHINE met with the pt at bedside to provide sw contact information and assess for unmet needs. Pt states that he lives at home with his and is I. He identifies no sw needs at this time. Pt states his will transport him home. A: Pt who is I at baseline. P: Anticipate pt to discharge home via POV when medically stable; P[employer] SE[employer]ER MACHINE to continue to follow if needs arise. MATT Schwartz
--- NOTE | 2017-04-16 15:41 | DRSVH ---
[facility] [address] [place] [address] Echocardiogram Report Name: CHARLEY NAM BStudy Date: Height: 63 in Hospital Exam Location: [facility] Weight: 198 lb Gender: Male BSA: 1.9 m2 : 1940 Age: 77 yrs BP: 98/65 mmHg Reason For Study: A-FIB. Ordering Physician: Performed By: Marlene Bedoya Referring Physician: Dino Murguia Interpretation Summary The left ventricle is normal in size, wall thickness, and systolic function without any focal wall motion abnormalities. The ejection fraction is estimated to be 55-60%. The right ventricle is normal in size and function. The right ventricular systolic pressure is estimated at 33 mmHg assuming a right atrial pressure of 8 mm Hg. The left atrium is moderately dilated. Right atrial size is normal. There is mild mitral regurgitation. There is no other significant valvular heart disease. The aortic root is mildly dilated. The ascending aorta is mildly enlarged. Liver cyst noted. Left Ventricle: The left ventricle is normal in size, wall thickness, and systolic function without any focal wall motion abnormalities. The ejection fraction is estimated to be 55-60%. Assessment of diastolic parameters indicates normal left ventricular diastolic function and normal filling pressures. Right Ventricle: The right ventricle is normal in size and function. Atria: The left atrium is moderately dilated. Right atrial size is normal. There is no Doppler evidence for an atrial septal defect. Mitral Valve: The mitral valve leaflets appear normal. There is no evidence of stenosis, fluttering, or prolapse. There is mild mitral regurgitation. Aortic Valve: The aortic valve is trileaflet. The aortic valve opens well. No aortic regurgitation is present. Tricuspid Valve: The tricuspid valve leaflets are thin and pliable. There is mild tricuspid regurgitation. The right ventricular systolic pressure is estimated at 33 mmHg assuming a right atrial pressure of 8 mm Hg. Pulmonic Valve: The pulmonic valve leaflets are thin and pliable; valve motion is normal. There is a trace or physiologic amount of pulmonic regurgitation. There is no other significant valvular heart disease. Great Vessels: The aortic root is mildly dilated. The ascending aorta is mildly enlarged. The pulmonary artery is normal size. The IVC is of normal diameter and collapses less than 50% with a sniff. This suggests a right atrial pressure of 8 mm Hg. Pericardium/ Pleura There is no pericardial effusion. There is no pleural effusion. Liver cyst noted. MMode/2D Measurements & Calculations LVIDd: 5.1 cm LA dimension: 4.0 cm RA long axis LVOT diam LVIDs: 3.1 cm FS: 38.9 % LA A2 area: 27.2 cm RA area AoV Opening IVSd: 0.85 cm LA A4 area: 20.9 cm LVPWd: 0.74 cm LA length (vol): 5.4 cm: 19.8 cm Ao root diam LA vol: 90.3 ml RA vol LA vol index : 65.5 ml asc Aorta RA Diam: 3.9 cm : 34.0 mm2 IVC diam: 2.2 cm LV wiseman. diameter/BSA LV sys. diameter/BSA RVD2 (mid) (cm/m^2): 2.7 (cm/m^2): 1.6 : 3.2 cm Doppler Measurements & Calculations Ao V2 max MV E max mukesh MV E/A: 1.5 TR max mukesh : 129.3 cm/sec : 73.2 cm/sec Med Peak E' Mukesh : 249.7 cm/sec Ao max PG MV A max mukesh TR max PG : 6.7 mmHg : 49.5 cm/sec E/E' med: 7.8 : 24.9 mmHg Ao mean PG MV P1/2t: 68.5 msec Lat Peak E' Mukesh PA V2 max : 74.7 cm/sec LVOT Max Mukesh E/E' lat: 8.4 PA mean PG : 97.3 cm/sec E/e' average: 8.1 Pulm A Revs Dur PA Accel Time INA(I,D): 2.7 cm : 0.13 sec sev ratio MV A dur: 0.13 sec MV dec time MV P1/2t max mukesh Ao V2 mean LV V1 max PG : 0.23 sec : 94.2 cm/sec MVA(P1/2t): 3.2 cm2 Ao V2 VTI: 21.6 cm LV V1 VTI INA(V,D): 3.0 cm2 : 14.9 cm PA V2 mean INA indexed to BSA Baldo Sanzs Dur - MV A : 52.3 cm/sec (cm^2/m^2): 1.4 Dur: -0.02 msec Reading Physician:JENNI
--- NOTE | 2017-04-16 18:41 | NUR ---
Cardiac Pt. was SR and ST throughout shift until ~1620 when he switched to AFIB with HR 100-140 and HR 170 with activity. An EKG was obtained, Pt. states upon assessment feeling no SOB, no CP and is in fact asymptomatic at this time. was made aware of the switch of heart rhythm. Will continue to monitor.
[2017-04-16] MEDS: Diltiazem Inj 125 MG in 0.9% Sodium Chloride 100 ML, Pharmacy To Mix 1 EA IV SCH (19:15)
[2017-04-17] VITALS (8 sets, daily range): BP systolic 102–122; BP diastolic 65–78; PULSE 81–126; RESP 18–32; O2SAT 93–95
[2017-04-17] MEDS ORDERED: Diltiazem Inj 125 MG in 0.9% Sodium Chloride 100 ML, Pharmacy To Mix 1 EA IV SCH (01:45)
[2017-04-17 02:50] LABS: BASOPHILS % (AUTO) 0.2 % (0-3); EOSINOPHILS % (AUTO) 1.5 % (0-5); MONOCYTES % (AUTO) 12.9 % (4-12); Mean Corpuscular Hemoglobin 31.3 pg (27.0-35.0); Mean Corpuscular Volume 92.6 fL (81-100); NEUTROPHILS % (AUTO) 69.6 % (40-74); Platelet Count 192 bil/L (150-400)
[2017-04-17 03:22] LABS: Magnesium 2.1 mg/dL (1.6-2.6)
[2017-04-17] MEDS: Diltiazem Inj 125 MG in 0.9% Sodium Chloride 100 ML, Pharmacy To Mix 1 EA IV SCH (03:58)
[2017-04-17] MEDS: 0.9% Sodium Chloride 1,000 ML IV SCH ×4 (05:35→20:11)
--- NOTE | 2017-04-17 05:57 | NUR ---
Afib RVR Pt in Afib 110-140s, increases significantly with any activity. PO metoprolol given per orders. Afib continues 130-140, made aware. Orders received, clarified, and confirmed to begin Cardizem gtt per protocol. Pt on MP30 with cardizem at 5mg/hr, BP stable, HR currently 97-low 100's.
[2017-04-17] MEDS ORDERED: Vancomycin Serum Trough XX ONE (08:30)
[2017-04-17] MEDS: Pantoprazole 40 mg ER24 Tablet PO SCH (09:18)
[2017-04-17] MEDS: Piperacillin-Tazo 3.375 Gm Inj 3.375 GM in Dextrose 5% Minibag Plus 50 ML IV SCH ×3 (09:18→23:46)
[2017-04-17] MEDS: Heparin 5,000 Unit/mL Inj SUBQ SCH ×4 (09:20→23:51)
[2017-04-17] MEDS: Sodium Chloride LOK Flush 10 mL Syringe IVFLUSH SCH ×4 (09:29→23:46)
--- NOTE | 2017-04-17 13:26 | PCM.PNMED ---
Subjective Date of Service April 17, 2017 Subjective Mr. Marie is a 77 y/o man with history of hypertension, hyperlipidemia, benign prostatic hypertrophy, and prostate cancer. Today is hospital day 3. Overnight, he was in atrial fibrillation in the 100-140s with increase to 170s with activity. He was started on oral metoprolol tartrate 12.5 mg twice per day and then later on a diltiazem drip. He reports that he feels much improved from when he first arrived at the hospital. He no longer is having urinary retention or difficulty initiating urination. He did not have discomfort with urination. His nocturia has decreased in frequency. He does not have a history of COPD and was never a smoker. He has never had to use inhalers. He had 3 episodes of diarrhea. Pt reports that he took atenolol for 17 years for an arrhythmia but has missed the medication for the past 3 days. Exam Vital Signs Vital Sign - Last Date Time Temp Pulse Resp B/P Pulse Ox O2 Delivery O2 Flow Rate FiO2 04/17/17 12:36 83 28 106/67 94 Room Air 04/17/17 09:00 36.5 04/16/17 04:34 2.00 Intake and Output 04/16/17 04/16/17 04/17/17 Cumulative From/Thru 15:00 23:00 07:00 04/14/17 16:59 - 04/17/17 04:59 Intake Total 492 ml 655 ml 6734 ml Output Total 650 ml 3095 ml Balance 492 ml 5 ml 3639 ml Intake Oral 600 ml 2200 ml IV Total 492 ml 55 ml 4534 ml Output Urine Total 650 ml 3095 ml # Voids 7 Exam General: Patient appears NAD sitting up in bed HEENT: Head is atraumatic and normocephalic. Eyes: Extraocular muscles are intact. Sclera are white, anicteric. Subconjunctival mucosa is pink. Ears and nose are unremarkable. Oropharynx: There is no mucosal lesions, there is no thrush, there is no pharyngitis. Neck: Is supple, there are no nodes, or masses or tenderness. Chest: Bilateral diffuse scattered expiratory wheezes. There are no rales, rhonchi, or rubs. Normal respiratory rate/not tachypneic Heart: Irregular rate and rhythm. There is no murmur, rub or gallop. Abdomen: Good bowel sounds are present. Abdomen is soft, nontender, no organomegaly or masses were appreciated. Extremities: Are symmetrical and well perfused. There is no edema, there is no cellulitis, no rash. Neurologic: There are no focal neurological deficits. Cranial nerves II through XII are intact. There are no sensory or motor deficits. Psychiatric: Patients mood and affect are normal. IVs and Medications Medications Reviewed: Medications were reviewed in detail Lab and Diagnostics Result Diagram: 04/17/1721904/17/17219 Microbiology Blood cultures are pending X-Rays, CTs and MRIs X-RAY CHEST ONE VIEW, PORTABLE 04/14 IMPRESSION: No acute cardiopulmonary disease process. Dictated by: Tere Sterling MD, PhD on 04/14/2017 at 19:49 Approved by: Tere Sterling MD, PhD on 04/14/2017 at 19:50 CT KUB 04/14 IMPRESSION: 1. No renal stones or hydronephrosis. 2. Patchy airspace opacities in the right lung base suspicious for pneumonia. 3. Indeterminate low attenuating hepatic lesions. Dictated by: Tere Sterling MD, PhD on 04/14/2017 at 21:38 Approved by: Tere Sterling MD, PhD on 04/14/2017 at 21:44 Cardiac Echo Impressions Echocardiogram Report Interpretation Summary The left ventricle is normal in size, wall thickness, and systolic function without any focal wall motion abnormalities. The ejection fraction is estimated to be 55-60%. The right ventricle is normal in size and function. The right ventricular systolic pressure is estimated at 33 mmHg assuming a right atrial pressure of 8 mm Hg. The left atrium is moderately dilated. Right atrial size is normal. There is mild mitral regurgitation. There is no other significant valvular heart disease. The aortic root is mildly dilated. The ascending aorta is mildly enlarged. Liver cyst noted. Reading Physician: PM Assessment & Plan Lucio Marie is a 77 y/o male with Hypertension, Hyperlipidemia and BPH presenting to [facility] emergency department complaining of increased urinary frequency. Hospital day 3. 1. Severe Sepsis. Present on admission, resolved Meeting criteria with Leukocytosis, Fever and tachycardia with a urinary source. Lactic acidosis indicates organ dysfunction - Etiology could be due to right lower lobe pneumonia or prostatitis or both - CT scan shows evidence of right lower lobe pneumonia and an enlarged prostate. - IV antibiotics have been started with vancomycin and Zosyn. Stopped vancomycin today (negative MRSA), but we will continue with Zosyn given uncertainty regarding source. - IV fluids resuscitations with Sepsis protocol initially. Stopped IVF maintenance 04/16/17s by mouth intake was good. - Continue close monitoring of vitals -Of potentially stronger consideration is the right lower lobe opacity on CT scan, but patient did not present with any significant cough. However, pneumonia should be on the differential -Repeat pro calcitonin tomorrow 2. Probable Acute Prostatitis. Present on admission, improving - Urinary tract infection ruled out due to unremarkable urinalysis - History of prostate cancer - However, urinalysis is unremarkable - We will continue empiric antibiotics as noted above and streamline as appropriate - Patient received Doxycycline which will be held - Blood cultures negative. Urine cultures are not indicated - May consider Infection disease and Urology consult - Check PSA level (still pending), if markedly elevated would favor prostatitis and then will proceed with a prostate exam - Patient requests medication to help his prostate enlargement. Therefore will continue Flomax 0.4 mg by mouth daily at bedtime. -Unclear why ESR/CRP elevated, possibly related to prostatitis or pneumonia - CT abdomen and pelvis with contrast 3. Possible community acquired pneumonia, present on admission, active - Patchy airspace opacities in the right lung base suspicious for pneumonia seen on CT scan - Patient has wheezing on exam today and has an increased respiratory rate - Continue Zosyn and started three day course of azithromycin 500 mg IV to cover for atypical bacteria - Continue to monitor 4. Acute on possible chronic atrial fibrillation with rapid ventricular response , sustained, active. - Patient reports taking atenolol for an arrhythmia. - He also has an active infection - We will hold IV Cardizem drip and only resume if patient has sustained HR greater than 105-110s - Echocardiogram as above showed moderately dilated left atrium - TSH and free T4 within normal limits - Consider cardiology consultation - Continue metoprolol tartrate 12.5 mg BID for now and adjust accordingly - Will need to discuss anticoagulation as an outpatient with patient. For now, continue aspirin daily 5. Lactic acidosis. Present on admission, resolved Due to tissue hypoxia from sepsis - We have trended till normal 6. Nonspecific hepatic lesions on CT KUB and echocardiogram. - History of prostate cancer, which can metastasize to liver. - CT abdomen and pelvis with contrast as above 7. Hypertension. Chronic - Initially all antihypertensive were held till sepsis resolves to avoid hypotension - Metoprolol tartrate 12.5 mg BID for now - Acetaminophen as needed for mild pain/fever/headache - Bowel regimen as needed - Antiemetic as needed Disposition: Anticipate discharge in 1-2 days (likely with some by mouth antibiotics to complete course and likely a new anticoagulation regimen). GI Prophylaxis: Proton Pump Inhibitor VTE Prophylaxis: Sub-Q Heparin (Unfractionated) Resuscitation Status: CPR: Attempt Resuscitation Attending Statement The patient was seen and examined together with Dr. Lorenzana on 04-17-17 and I agree with the history, exam and plan as outlined in the note above. Allison Lorenzana DO April 17, 2017 13:26 Lenard Vail MD April 18, 2017 16:18
--- NOTE | 2017-04-17 15:03 | NUR ---
Cardiac Conversion Per [employer] Fis[employer] Professor, pt converted approximately 1400 from Afib RVR to SR 80s.
--- NOTE | 2017-04-17 17:27 | DRSVH ---
PROCEDURE: CT ABDOMEN AND PELVIS WITH CONTRAST ([id number]) INDICATIONS: hx of prostate cancer, dysuria, liver lesions TECHNIQUE: After the administration of oral and intravenous contrast, 5 mm thick sections acquired from the diap hragms to the symphysis. 5 mm thick coronal and sagittal reformats were performed. For radiation do se reduction, the following was used: automated exposure control, adjustment of mA and/or kV accordi ng to patient size. COMPARISON: [facility], CT, CT KUB, 04/14/2017, 21:29. FINDINGS: Image quality: Excellent. ABDOMEN: Lung bases: There is a new small right pleural effusion. There is increased moderate patchy airspace opacity within the right lung base. Heart size is normal. Solid organs: Multiple hepatic cysts are present. Within the right hepatic lobe posteriorly, there is a 12 mm diameter low-density focus with a small region of peripheral nodular enhancement, suggestive of a hemangioma. Hepatic enhancement is otherwise normal. Spleen is within normal limits. Gallbladde r is within normal limits. Biliary system is non-dilated. Pancreas enhances normally. No adrenal n odules. Kidneys are normal in size and enhancement, without hydronephrosis. Peritoneum and bowel: Stomach, small bowel, and colon loops are normal in caliber and wall thickness . Diverticulosis of the descending and sigmoid colon is present. Normal appendix. No free fluid or a ir. Nodes and vessels: No retroperitoneal or mesenteric adenopathy. Aorta and inferior vena cava are no rmal in caliber. Miscellaneous: No change in 37 mm diameter fat-containing umbilical hernia. PELVIS: Genitourinary: Bladder wall thickness is normal. Miscellaneous: No inguinal hernias or adenopathy. Bones: No suspicious bony lesions. No vertebral body compression fractures. IMPRESSION: 1. Increased right lung base pneumonia with small parapneumonic effusion. Continued plain film survei llance is recommended to ensure resolution, and to exclude underlying or central malignancy. 2. Right hepatic lobe hemangioma. Multiple hepatic cysts. 3. Normal appendix. 4. Fat-containing umbilical hernia. Dictated by: Link Franklin M.D. on 04/17/2017 at 17:23 Approved by: Link Franklin M.D. on 04/17/2017 at 17:26
--- NOTE | 2017-04-17 18:45 | NUR ---
Cardiac/GI/ Pt converted to SR 80s @ 1400. Flipped back into A-fib RVR with rates 110-140 @ approx 1700. Pt is asymptomatic. GI/: Pt. denies N/V. one episode of diarrhea/incontinence this shift. Pt states that he has been able to void without diarrhea x3 this afternoon.
[2017-04-18] VITALS (8 sets, daily range): BP systolic 105–143; BP diastolic 60–90; PULSE 82–170; RESP 18–24; O2SAT 93–98
--- NOTE | 2017-04-18 01:14 | NUR ---
Cardiac/GI Patient pleasant and cooperative, resting in bed and denies pain, patient converted from A-Fib to NSR 80's about 1847, patient denies chest pain, resting in bed at this time. C-Diff sample sent and results came back negative form C-Diff. Will continue to monitor, no distress noted, uneventful shift.
[2017-04-18 04:07] LABS: BASOPHILS % (AUTO) 0.4 % (0-3); Mean Corpuscular Hemoglobin 30.9 pg (27.0-35.0); Mean Corpuscular Volume 92.5 fL (81-100); NEUTROPHILS % (AUTO) 63.3 % (40-74); Platelet Count 226 bil/L (150-400)
[2017-04-18] MEDS: Piperacillin-Tazo 3.375 Gm Inj 3.375 GM in Dextrose 5% Minibag Plus 50 ML IV SCH ×3 (08:19→23:30)
[2017-04-18] MEDS: Heparin 5,000 Unit/mL Inj SUBQ SCH ×3 (08:20→23:31)
[2017-04-18] MEDS: Pantoprazole 40 mg ER24 Tablet PO SCH (08:20)
[2017-04-18] MEDS: Sodium Chloride LOK Flush 10 mL Syringe IVFLUSH SCH ×3 (08:20→23:30)
[2017-04-18] MEDS: Azithromycin Inj 500 MG in Dextrose 5% w/Vial Mate 250 ML IV SCH (13:47)
--- NOTE | 2017-04-18 15:07 | NUR ---
NUTRITION ASSESSMENT: ASSESS: Pt is a 77yo M admitted for increased urinary frequency and pneumonia. His PO intake is fair at 25-100% of meals. PO avg over 4 days is 60%. Pt wt has increased 5kg in 4 days. PMHX: HTN, HLD, BPH LABS: Reviewed. Yeast Tender 1.39, Glu 125, Ca 7.9, AST 80, ALT 68, Alb 2.8 MEDS: Reviewed. GI: BMx1 04/18, C-Diff negative SKIN: no issues noted CURRENT WTS: 92kg, BMI 35.9kg/m2, admit wt 87kg, IBW: 56.3kg DIET: Heart Healthy, PO avg 60% EST. NEEDS: BMI Kcals: 1840-2025kcal/day (20-22kcal/kg) Pro: 65-85g/day (1.2-1.5g/kg IBW) NUTRITION DIAGNOSIS: 1.) Variable PO intake related to acute illness as evidence by PO ranging from 25-100% of meals. NUTRITION INTERVENTION: 1.) Continue current diet. If PO avg drops below 50%, recommend consider supplement/snacks MONITOR / EVAL: PO, wt, GI, labs, POC, nutrition status. Will continue to monitor per moderate nutrition risk guidelines.
--- NOTE | 2017-04-18 16:36 | PCM.PNMED ---
Subjective Date of Service April 18, 2017 Subjective Mr. Marie is a 77 y/o man with history of hypertension, hyperlipidemia, benign prostatic hypertrophy, and prostate cancer. Today is hospital day 4. Today, he states that he continues to have diarrhea. He will be incontinent of fecal matter when urinating. He has not noticed blood in his stools. He does not have chest pain or abdominal pain. He had a mild cough, which is improving. Exam Vital Signs Vital Sign - Last Date Time Temp Pulse Resp B/P Pulse Ox O2 Delivery O2 Flow Rate FiO2 04/18/17 15:56 36.8 89 18 122/78 94 Room Air 04/16/17 04:34 2.00 Intake and Output 04/17/17 04/17/17 04/18/17 Cumulative From/Thru 15:00 23:00 07:00 04/14/17 16:59 - 04/18/17 06:17 Intake Total 1172 ml 915 ml 8821 ml Output Total 700 ml 1050 ml 4845 ml Balance 472 ml -135 ml 3976 ml Intake Oral 1072 ml 815 ml 4087 ml IV Total 100 ml 100 ml 4734 ml Output Urine Total 700 ml 1050 ml 4845 ml # Voids 7 # Bowel Movements 2 1 3 Exam General: Patient appears NAD sitting up in bed HEENT: Head is atraumatic and normocephalic. Eyes: Extraocular muscles are intact. Sclera are white, anicteric. Subconjunctival mucosa is pink. Ears and nose are unremarkable. Oropharynx: There is no mucosal lesions, there is no thrush, there is no pharyngitis. Neck: Is supple, there are no nodes, or masses or tenderness. Chest: Bilateral diffuse scattered expiratory wheezes. There are no rales, rhonchi, or rubs. Normal respiratory rate/not tachypneic Heart: Irregular rate and rhythm. There is no murmur, rub or gallop. Abdomen: Good bowel sounds are present. Abdomen is soft, nontender, no organomegaly or masses were appreciated. Digital rectal exam performed with chemical research engineer: Diffusely enlarged, soft prostate without tenderness. Extremities: Are symmetrical and well perfused. There is no edema, there is no cellulitis, no rash. Neurologic: There are no focal neurological deficits. Cranial nerves II through XII are intact. There are no sensory or motor deficits. Psychiatric: Patients mood and affect are normal. IVs and Medications Medications Reviewed: Medications were reviewed in detail Lab and Diagnostics Result Diagram: 04/18/1732904/18/17329 Microbiology Blood cultures are pending X-Rays, CTs and MRIs X-RAY CHEST ONE VIEW, PORTABLE 04/14 IMPRESSION: No acute cardiopulmonary disease process. Dictated by: Tere Sterling MD, PhD on 04/14/2017 at 19:49 Approved by: Tere Sterling MD, PhD on 04/14/2017 at 19:50 CT KUB 04/14 IMPRESSION: 1. No renal stones or hydronephrosis. 2. Patchy airspace opacities in the right lung base suspicious for pneumonia. 3. Indeterminate low attenuating hepatic lesions. Dictated by: Tere Sterling MD, PhD on 04/14/2017 at 21:38 Approved by: Tere Sterling MD, PhD on 04/14/2017 at 21:44 PROCEDURE: CT ABDOMEN AND PELVIS WITH CONTRAST IMPRESSION: 1. Increased right lung base pneumonia with small parapneumonic effusion. Continued plain film surveillance is recommended to ensure resolution, and to exclude underlying or central malignancy. 2. Right hepatic lobe hemangioma. Multiple hepatic cysts. 3. Normal appendix. 4. Fat-containing umbilical hernia. Approved by: Link Franklin M.D. on 04/17/2017 at 17:26 Cardiac Echo Impressions Echocardiogram Report Interpretation Summary The left ventricle is normal in size, wall thickness, and systolic function without any focal wall motion abnormalities. The ejection fraction is estimated to be 55-60%. The right ventricle is normal in size and function. The right ventricular systolic pressure is estimated at 33 mmHg assuming a right atrial pressure of 8 mm Hg. The left atrium is moderately dilated. Right atrial size is normal. There is mild mitral regurgitation. There is no other significant valvular heart disease. The aortic root is mildly dilated. The ascending aorta is mildly enlarged. Liver cyst noted. Reading Physician: PM Assessment & Plan Lucio Marie is a 77 y/o male with Hypertension, Hyperlipidemia and BPH presenting to [facility] emergency department complaining of increased urinary frequency. Hospital day 3. Severe Sepsis. Present on admission, resolved Meeting criteria with Leukocytosis, Fever and tachycardia with a urinary source. Lactic acidosis indicates organ dysfunction - Etiology could be due to right lower lobe pneumonia or prostatitis or both - CT scan shows evidence of right lower lobe pneumonia and an enlarged prostate. - IV antibiotics have been started with vancomycin and Zosyn. Stopped vancomycin today (negative MRSA), but we will continue with Zosyn given uncertainty regarding source. - IV fluids resuscitations with Sepsis protocol initially. Stopped IVF maintenance 04/16/17s by mouth intake was good. - Continue close monitoring of vitals -Of potentially stronger consideration is the right lower lobe opacity on CT scan, but patient did not present with any significant cough. However, pneumonia should be on the differential -Repeat pro calcitonin tomorrow Acute Prostatitis. Present on admission, improving - Urinary tract infection ruled out due to unremarkable urinalysis - History of prostate cancer - However, urinalysis is unremarkable - CT abdomen and pelvis with contrast did not show lymphadenopathy - Patient received Doxycycline which will be held - Blood cultures negative. Urine cultures are not indicated -Unclear why ESR/CRP elevated, possibly related to prostatitis or pneumonia - PSA level 4.2, elevated but improving compared to previous levels - Prostate enlarged but non-tender on exam - Patient requests medication to help his prostate enlargement. Therefore will continue Flomax 0.4 mg by mouth daily at bedtime. - Will need to complete a 4-6 week course of oral levofloxacin 500 mg once daily or ciprofloxacin 500 mg twice daily as an outpatient - Consider outpatient urology follow up Probable community acquired pneumonia, present on admission, improving - Patchy airspace opacities in the right lung base suspicious for pneumonia seen on CT scan and it was worsening on the second CT scan - Viral respiratory panel negative, Legionella and Strep pneumo antigens negatve - Patient has wheezing on exam today, which was improved from yesterday, and had an increased respiratory rate - Procalcitonin stable - Continue Zosyn and started three day course of azithromycin 500 mg IV to cover for atypical bacteria - Continue to monitor Acute on possible chronic atrial fibrillation with rapid ventricular response, sustained, active. - Patient reports taking atenolol for an arrhythmia. - He also has an active infection - We will hold IV Cardizem drip and only resume if patient has sustained HR greater than 105-110s - Echocardiogram as above showed moderately dilated left atrium - TSH and free T4 within normal limits - Consider cardiology consultation - Pt given an extra dose of metoprolol tartrate 12.5 mg during the afternoon - Switched to metoprolol succinate 25 mg for evening dose - Will need to discuss anticoagulation as an outpatient with patient. For now, continue aspirin daily, and patient is considering an new oral anticoagulant rather than warfarin. Diarrhea, acute, not present on admission, active. - Pt reports loose stools and fecal incontinence with urinating - C. diff negative - Stool PCR panel ordered - Continue Florastor BID - Imodium as needed for diarrhea Lactic acidosis. Present on admission, resolved Due to tissue hypoxia from sepsis - We have trended till normal Nonspecific hepatic lesions on CT and echocardiogram. - History of prostate cancer, which can metastasize to liver. - Right liver lobe hemangioma with hepatic cysts - CT abdomen and pelvis with contrast as above Hypertension. Chronic - Initially all antihypertensive were held till sepsis resolves to avoid hypotension - Metoprolol succinate 25 mg once daily for now - Acetaminophen as needed for mild pain/fever/headache - Bowel regimen as needed - Antiemetic as needed Disposition: Anticipate discharge in 1-2 days (likely with by mouth antibiotics to complete course and likely a new anticoagulation regimen). GI Prophylaxis: Proton Pump Inhibitor VTE Prophylaxis: Sub-Q Heparin (Unfractionated) Resuscitation Status: CPR: Attempt Resuscitation Attending Statement The patient was seen and examined together with Dr. Lorenzana on 04-18-17 and I agree with the history, exam and plan as outlined in the note above. Allison Lorenzana DO April 18, 2017 16:36 Lenard Vail MD April 18, 2017 17:44
--- NOTE | 2017-04-18 17:54 | NUR ---
Tele Patient converted to Afib with RVR on the 170s-200 at beginning of shift. MD notified scheduled PO metoprolol given. Rate slowly trended down throughout shift and converted back to SR 80s around 1630.
[2017-04-19 03:07] LABS: BASOPHILS % (AUTO) 0.6 % (0-3); EOSINOPHILS % (AUTO) 4.9 % (0-5); MONOCYTES % (AUTO) 11.5 % (4-12); Mean Corpuscular Hemoglobin 30.8 pg (27.0-35.0); Mean Corpuscular Volume 91.5 fL (81-100); NEUTROPHILS % (AUTO) 58.4 % (40-74); Platelet Count 247 bil/L (150-400)
[2017-04-19 03:12] VITALS: BP 118/76; PULSE 108; RESP 20; O2SAT 95
--- NOTE | 2017-04-19 04:42 | NUR ---
Tele Pt is in SR in 80's while resting in bed. With any activity OOB pt HR spikes to 140-170 Afib, resumes SR quickly after rest. VS remain stable. Pt denies sx of CP or nausea, states he gets a bit "winded" at times. Continuing to monitor.
--- NOTE | 2017-04-19 08:15 | NUR ---
Activity Pt active in room, denies SOB, states feeling better. States he shaved in bathroom, washed face and tried to have a BM without incidence of SOB. Is asking about discharging. Care continues.
[2017-04-19] MEDS ORDERED: MeTOProlol XL 25 mg ER24 Tablet PO SCH ×2 (08:30→20:30)
[2017-04-19 09:02] VITALS: BP 144/94; PULSE 101; RESP 18; O2SAT 94
[2017-04-19] MEDS: Sodium Chloride LOK Flush 10 mL Syringe IVFLUSH SCH (09:06)
[2017-04-19] MEDS: Piperacillin-Tazo 3.375 Gm Inj 3.375 GM in Dextrose 5% Minibag Plus 50 ML IV SCH (09:09)
[2017-04-19] MEDS: Pantoprazole 40 mg ER24 Tablet PO SCH (09:13)
[2017-04-19] MEDS: Heparin 5,000 Unit/mL Inj SUBQ SCH (09:15)
[2017-04-19 11:05] VITALS: PULSE 95
[2017-04-19] MEDS ORDERED: MeTOProlol XL 25 mg ER24 Tablet PO ONE (11:50)
[2017-04-19] MEDS ORDERED: TAMS0.4C98 PO (11:54)
[2017-04-19] MEDS ORDERED: ZIT250 PO (11:54)
[2017-04-19] MEDS ORDERED: SACC250C PO (11:54)
[2017-04-19] MEDS ORDERED: ASPI325T32 PO (11:54)
[2017-04-19] MEDS ORDERED: METO-272 PO (11:54)
[2017-04-19 12:05] VITALS: BP 138/92; PULSE 90; RESP 18; O2SAT 94
--- NOTE | 2017-04-19 12:23 | NUR ---
Social Work Note: Discharge Data& Assessment: EMR reviewed. Per pt is medically ready for discharge. Lucio Marie is a 77 year old male admitted on 04/14/2017 for fever and elevated lactic acid. Per pt is medically improved and ready for discharge home via POV. SW met with pt and pt family at bedside to confirm discharge plan and assess for any unmet needs. Pt being transferred from IV to oral medications. Pt ambulating in his room independently. Pt and son transporting pt home this afternoon. Pt and pt family deny any other needs. No other discharge needs identified. denies any further orders or needs. All updated and agreeable to plan. Plan: Per pt is medically ready to discharge home via POV. Pt and pt family deny any other needs. No other discharge needs identified. All updated and agreeable to plan. MATT Mcbride
--- NOTE | 2017-04-19 13:01 | PCM.DIMED ---
Chelly Lorenzanasskieran Thacker DO 04/19/17 0749: Discharge Instructions Date of Service April 19, 2017 Dates of Hospitalization April 14, 2017 at 23:05 Discharge Diagnosis Discharge Diagnosis You have pneumonia and you have been treated with antibiotics. Your heart rate has been fast and irregular, which is called atrial fibrillation, so we adjusted your medications. You had some urinary retention associated with your prostate so you have been started on medication to help with that as well. Diet Discharge Diet: Heart Healthy Activity Discharge Activity: Limited until seen by PCP Call your provider Call your provider for: Fever or Chills, Shortness of breath, Bleeding, Chest pain, Excessive diarrhea, Weakness (unilateral) Patient Instructions Patient Instructions For your heart rate and irregular heart rhythm, continue metoprolol succinate 50 mg once daily in the morning. This will also help control your blood pressure. Stop taking triamterene/hydrochlorothiazide and potassium. Stop taking atenolol. If you have a pulse oximeter or a blood pressure cuff that records your heart rate, you can check your heart rate daily. If your heart rate is more than 160 or less than 60, then please seek medical attention. If you check your blood pressure at home and your blood pressure is less than 100/60 or more than 160/ 100, then please seek medical attention. If you have chest pain, dyspnea, or feel your heart racing or skipping a beat, then please seek medical attention. To prevent a stroke, start taking a 325 mg aspirin daily, enteric coated, with a meal for now. As you requested, discuss possibly changing this to a different anticoagulation, or blood thinner, with your primary care provider. Start taking tamsulosin 0.4 mg once daily at bedtime to help with urine flow. For pneumonia, continue azithromycin 250 mg once daily for 4 more days. While taking antibiotics, you can take the probiotic (Florastor) twice per day or eat probiotic containing foods like yogurt, sauerkraut, or pickled vegetables. Follow up with your primary care provider in 7-10 days. Follow up with your urologist in 4-6 weeks, or sooner if needed, to review your prostate health. Follow-up Provider: Dino Murguia MD Follow-up with PCP in: 1 week Provider: Viola Main MD Follow-up in: Other (to review prostate health) Enoch Ramirez MD 04/19/17 1404: Discharge Instructions Attending's Statement Patient seen and examined with house staff. Agree with all attached documentation. Allison Lorenzana DO April 19, 2017 07:49 Enoch Ramirez MD April 19, 2017 14:04
[2017-04-19] MEDS: Azithromycin Inj 500 MG in Dextrose 5% w/Vial Mate 250 ML IV SCH (13:30)
--- NOTE | 2017-04-19 14:29 | NUR ---
Discharge Pt discharged at approximately 1445 to home with . Pt given educational material for Metoprolol ER, ASA, Zithromax, Florastor, Flomax, Pneumonia and Afib. Next dose to be taken clearly written and dated, followup appt scheduled with PCP. Pt acknowledged and understood all information. IV's DC'd with catheter intact, Tele DC'd technical developer notified. Pt left with all personal belongings. Escorted by this RN to the door via wheelchair.
--- NOTE | 2017-04-20 21:36 | PCM.DC.MED ---
Discharge Summary Date of Service April 20, 2017 Dates of Hospitalization Date of Hospital Admission April 14, 2017 at 23:05 Date of Discharge: April 19, 2017 Providers: Admitting Physician: Devin Fernandes MD Primary Care Physician: Dino Murguia MD Attending Physician: Devin Fernandes MD Diagnosis at Time of Discharge Diagnosis at Time of Discharge Severe Sepsis Probable acute community acquired pneumonia Acute on possible chronic atrial fibrillation with rapid ventricular response Ruled out acute prostatitis Diarrhea Lactic acidosis Nonspecific hepatic lesions on CT and echocardiogram Hypertension Procedures XRay, CTs & MRIs X-RAY CHEST ONE VIEW, PORTABLE 04/14 IMPRESSION: No acute cardiopulmonary disease process. Dictated by: Tere Sterling MD, PhD on 04/14/2017 at 19:49 Approved by: Tere Sterling MD, PhD on 04/14/2017 at 19:50 CT KUB 04/14 IMPRESSION: 1. No renal stones or hydronephrosis. 2. Patchy airspace opacities in the right lung base suspicious for pneumonia. 3. Indeterminate low attenuating hepatic lesions. Dictated by: Tere Sterling MD, PhD on 04/14/2017 at 21:38 Approved by: Tere Sterling MD, PhD on 04/14/2017 at 21:44 PROCEDURE: CT ABDOMEN AND PELVIS WITH CONTRAST IMPRESSION: 1. Increased right lung base pneumonia with small parapneumonic effusion. Continued plain film surveillance is recommended to ensure resolution, and to exclude underlying or central malignancy. 2. Right hepatic lobe hemangioma. Multiple hepatic cysts. 3. Normal appendix. 4. Fat-containing umbilical hernia. Approved by: Link Franklin M.D. on 04/17/2017 at 17:26 Cardiac Echo Impression Echocardiogram Report Interpretation Summary The left ventricle is normal in size, wall thickness, and systolic function without any focal wall motion abnormalities. The ejection fraction is estimated to be 55-60%. The right ventricle is normal in size and function. The right ventricular systolic pressure is estimated at 33 mmHg assuming a right atrial pressure of 8 mm Hg. The left atrium is moderately dilated. Right atrial size is normal. There is mild mitral regurgitation. There is no other significant valvular heart disease. The aortic root is mildly dilated. The ascending aorta is mildly enlarged. Liver cyst noted. Reading Physician: PM Brief History From the history and physical performed by Dr. Devin Fernandes on 04/15/2017: Lucio Marie is a 77 y/o male with Hypertension, Hyperlipidemia and BPH presenting to [facility] emergency department complaining of increased urinary frequency onset 4 days ago. Main issue is difficulty initiating a stream when he tries to urinate. The symptoms are persistent with nocturia and polyuria. He only experiences this during the night and is normal during the day. Associated symptoms include chills (onset this afternoon), fever, and hematuria. He took some tylenol with help a little He had a biopsy of his prostate done and was told a sample had cancer by a Dr. Ware, urologist. He was also told he has a enlarged prostate. Denies any weight loss. Case discussed with Dr Joiner, meeting sepsis criteria due to leukocytosis, tachycardia and Fever. IV fluids and broad spectrum antibiotics initiated. Hospital Course Lucio Marie is a 77 y/o male with Hypertension, Hyperlipidemia and BPH presenting to [facility] emergency department complaining of increased urinary frequency. Severe Sepsis. Present on admission, resolved Meeting criteria with Leukocytosis, Fever and tachycardia with a urinary source. Lactic acidosis indicates organ dysfunction - Etiology due to right lower lobe pneumonia - CT scan showed evidence of right lower lobe pneumonia and an enlarged prostate. - IV antibiotics have been started with vancomycin and Zosyn. Stopped vancomycin (negative MRSA), but continued with Zosyn given uncertainty regarding source. - IV fluids resuscitations with Sepsis protocol initially. Stopped IVF maintenance 04/16/17 as by mouth intake was good. - Continued close monitoring of vitals Probable acute community acquired pneumonia, present on admission, improving - Patchy airspace opacities in the right lung base suspicious for pneumonia seen on CT scan and it was worsening on the second CT scan - Patient did not present with any significant cough. However, patient had an increased respiratory rate and oxygen demand, which improved on day of discharge. - Patient had wheezing on exam, which improved - Viral respiratory panel negative, Legionella and Strep pneumo antigens were negative - Procalcitonin stable - Continued Zosyn started on 04/15/17 and started azithromycin 500 mg IV on to cover for atypical bacteria - Discharged patient with 4 days of azithromycin 250 mg once daily to finished an course of azithromycin Acute on possible chronic atrial fibrillation with rapid ventricular response, sustained, active. - Patient reported taking atenolol for an arrhythmia. - He also had an active infection - Echocardiogram as above showed moderately dilated left atrium - TSH and free T4 within normal limits - Consider cardiology consultation as an outpatient - Started pt on metoprolol succinate 50 mg once daily on day of discharge - Will need to discuss anticoagulation as an outpatient with patient. For now, aspirin 325 mg daily, and patient declined starting warfarin or a new anticoagulant prior to discharge. He requested to discuss anticoagulation further with his primary care provider. Ruled out acute prostatitis. Present on admission - Urinary tract infection ruled out due to unremarkable urinalysis - History of prostate cancer and BPH - PSA level 4.2, elevated but improving compared to previous levels - Prostate enlarged but non-tender on exam, which made prostatitis unlikely. Additionally, pt's symptoms of urinary retention improved with Flomax. - Patient received doxycycline initially - Blood cultures were negative. Urine cultures were not indicated - Unclear why ESR/CRP elevated, possibly related to pneumonia as above - Patient requested medication to help his prostate enlargement. Therefore, continued Flomax 0.4 mg by mouth daily at bedtime. - Consider outpatient urology follow up Diarrhea, acute, not present on admission, improved. - Pt reported loose stools - C. difficile negative - Started Florastor probiotics twice per day - Imodium as needed for diarrhea Lactic acidosis. Present on admission, resolved Due to tissue hypoxia from sepsis - We trended until normal Nonspecific hepatic lesions on CT and echocardiogram. - Right liver lobe hemangioma with hepatic cysts seen on CT scan with contrast - CT abdomen and pelvis with contrast as above - Recommend further workup as an outpatient Hypertension. Chronic - Initially all antihypertensive were held until sepsis resolved to avoid hypotension - Metoprolol succinate 50 mg once daily for now - Held triamterene/hydrochlorothiazide for now because of initiating metoprolol succinate for atrial fibrillation Exam Vital Signs (Last) Date Time Temp Pulse Resp B/P Pulse Ox O2 Delivery O2 Flow Rate FiO2 04/19/17 12:05 36.6 90 18 138/92 94 Room Air 04/16/17 04:34 2.00 Exam General: Patient appears NAD sitting up in bed HEENT: Head is atraumatic and normocephalic. Eyes: Extraocular muscles are intact. Sclera are white, anicteric. Subconjunctival mucosa is pink. Ears and nose are unremarkable. Oropharynx: There is no mucosal lesions, there is no thrush, there is no pharyngitis. Neck: Is supple, there are no enlarged lymph nodes, or masses or tenderness. Chest: Lungs clear to auscultation bilaterally. There are no rales, rhonchi, or rubs. Normal respiratory rate/not tachypneic Heart: Irregular rate and rhythm. There is no murmur, rub or gallop. Abdomen: Bowel sounds are present. Abdomen is soft, nontender, no organomegaly or masses were appreciated. Extremities: Are symmetrical and well perfused. There is no edema, there is no cellulitis, no rash. Neurologic: There are no focal neurological deficits. Cranial nerves II through XII are intact. There are no sensory or motor deficits. Psychiatric: Patients mood and affect are normal. Test 04/14/17 19:26 04/14/17 19:37 04/14/17 20:09 04/15/17 19:10 Urine Color Yellow (YELLOW) Urine Appearance Clear (CLEAR,HAZY) Urine pH 5.5 (5.0-8.0) Urine Specific Delia 1.020 (1.003-1.035) Urine Protein 30mg/dL (NEG,TRACE) Urine Glucose (UA) Negativemg/dL (NEGATIVE) Urine Ketones Tracemg/dL (NEGATIVE) Urine Occult Blood Moderate (NEGATIVE) Urine Nitrite Negative (NEGATIVE) Urine Bilirubin Negative (NEGATIVE) Urine Urobilinogen Normalmg/dL (NORMAL) Urine Leukocyte Esterase Negative (NEGATIVE) Urine RBC 3-10/hpf (0-2) Urine WBC 0-5/hpf (0-5) Urine Epithelial Cells Few/hpf (NONE-MOD) Urine Crystals None seen (NONE SEEN) Urine Bacteria Few/hpf (NONE-FEW) Urine Hyaline Casts None/lpf (NONE) Urine Granular Casts None seen (NONE SEEN) Urine Waxy Casts None seen (NONE SEEN) Urine Red Blood Cell Casts None seen (NONE SEEN) Urine White Blood Cell Casts None seen (NONE SEEN) Urine Mucus Present (None Seen) Urine Trichomonas None seen (NONE SEEN) Urine Yeast None (NONE SEEN) Urinalysis Comment Amorphous sediment Urine Culture Reflexed Not indicated Prothrombin Time 11.2sec (8.1-12.5) Prothromb Time International Ratio 1.05ratio Lipase 11U/L (13-60) Hold Brian Top Tube Received (Received) Urine Legionella pneumophilia Ag Negative (Negative) Test 5/20/17 23:20 04/16/17 02:30 04/16/17 09:45 04/17/17 02:20 Prostate Specific Antigen 4.2ng/mL (0.0-4.0) Vancomycin Level Trough 7.8mcg/mL Erythrocyte Sedimentation Rate 48mm/hr (0-30) C-Reactive Protein 22.3mg/dL (0.0-0.5) Lactic Acid Level 1.3mmol/L (0.4-2.0) Hold Red Top Tube Received (Received) Magnesium Level 2.1mg/dL (1.6-2.6) Thyroid Stimulating Hormone (TSH) 3.800uIU/mL (0.450-4.500) Free Thyroxine 1.08ng/dL (0.82-1.77) Test 04/19/17 02:35 White Blood Count 7.8th/mm3 (3.8-10.1) Red Blood Count 4.12mil/mm3 (4.40-5.80) Hemoglobin 12.7g/dL (13.8-17.2) Hematocrit 37.7% (41.0-50.0) Mean Corpuscular Volume 91.5fL (81-100) Mean Corpuscular Hemoglobin 30.8pg (27.0-35.0) Mean Corpuscular Hemoglobin Concent 33.7% (32.0-37.0) Red Cell Distribution Width 12.6% (12.3-15.4) Platelet Count 247bil/L (150-400) Neutrophils (%) (Auto) 58.4% (40-74) Lymphocytes (%) (Auto) 23.2% (14-46) Monocytes (%) (Auto) 11.5% (4-12) Eosinophils (%) (Auto) 4.9% (0-5) Basophils (%) (Auto) 0.6% (0-3) Sodium Level 142mEq/L (134-144) Potassium Level 4.2mEq/L (3.5-5.2) Chloride Level 105mEq/L (97-108) Carbon Dioxide Level 22mmol/L (18-29) Blood Urea Nitrogen 20mg/dL (8-27) Creatinine 1.14mg/dL (0.76-1.27) Estimat Glomerular Filtration Rate 66mL/min (>59) Glucose Level 115mg/dL (60-99) Calcium Level 8.1mg/dL (8.5-10.1) Total Bilirubin 0.3mg/dL (0.0-1.2) Aspartate Amino Transf (AST/SGOT) 70U/L (0-50) Alanine Aminotransferase (ALT/SGPT) 74U/L (0-44) Alkaline Phosphatase 55U/L (25-160) Total Protein 5.5g/dL (6.4-8.4) Albumin 3.1g/dL (3.4-5.0) Procalcitonin 0.17ng/mL (0.00-0.08) Microbiology Results Blood cultures are pending Discharge Medications Discharge Medications ([vitamin D]) Unknown Dose PO DAILY (Reported) ([Niacin]) Unknown Dose PO DAILY (Reported) Aspirin (Aspirin) 325 Mg Tablet 325 MG PO DAILYWM Prescribed by: TERI ZEPEDA DO Azithromycin (Zithromax) 250 Mg Tablet 250 MG PO DAILY Prescribed by: TERI ZEPEDA DO Metoprolol Succinate ER (Metoprolol Succinate ER) 50 Mg Tab.er.24h 50 MG PO DAILY Prescribed by: TERI ZEPEDA DO Multivitamin (Men's Multi-Vitamin) 1 Each Tablet 1 EACH PO DAILY (Reported) [place]-3 Fatty Acids (Fish Oil) 500 Mg Capsule.dr 500 MG PO HS (Reported) Saccharomyces Boulardii (Florastor) 250 Mg Capsule 250 MG PO BID Prescribed by: TERI ZEPEDA DO Tamsulosin (Flomax) 0.4 Mg Capsule 0.4 MG PO HS Prescribed by: TERI ZEPEDA DO Vitamin E Mixed (Vitamin E) 400 Unit Capsule 400 UNIT PO HS (Reported) Followup Plan Disposition: Home Discharge Diet: Heart Healthy Discharge Activity: Limited until seen by PCP Patient Instructions For your heart rate and irregular heart rhythm, continue metoprolol succinate 50 mg once daily in the morning. This will also help control your blood pressure. Stop taking triamterene/hydrochlorothiazide and potassium. Stop taking atenolol. If you have a pulse oximeter or a blood pressure cuff that records your heart rate, you can check your heart rate daily. If your heart rate is more than 160 or less than 60, then please seek medical attention. If you check your blood pressure at home and your blood pressure is less than 100/60 or more than 160/ 100, then please seek medical attention. If you have chest pain, dyspnea, or feel your heart racing or skipping a beat, then please seek medical attention. To prevent a stroke, start taking a 325 mg aspirin daily, enteric coated, with a meal for now. As you requested, discuss possibly changing this to a different anticoagulation, or blood thinner, with your primary care provider. Start taking tamsulosin 0.4 mg once daily at bedtime to help with urine flow. For pneumonia, continue azithromycin 250 mg once daily for 4 more days. While taking antibiotics, you can take the probiotic (Florastor) twice per day or eat probiotic containing foods like yogurt, sauerkraut, or pickled vegetables. Follow up with your primary care provider in 7-10 days. Follow up with your urologist in 4-6 weeks, or sooner if needed, to review your prostate health. Follow-up Provider: Dino Murguia MD Follow-up with PCP in: 1 week Provider: Viola Main MD Follow-up in: Other (to review prostate health) Time spent 60 min Attending Statement Patient seen and examined with house staff. Agree with all attached documentation. copies to: Dino Murguia MD; Viola Main MD, Marissa L DO April 20, 2017 21:35 Enoch Ramirez MD April 21, 2017 08:12
== END 2017-04-19 14:28 | disposition home or self-care (01) | DRG 871 ==
LOC: SED 16:38 → MPC 23:05 → PCC 04-15 19:30
PROVIDERS: ADMIT Hospitalist; ATTEND Hospitalist
DX: A41.9 Sepsis, unspecified organism (principal); J18.9 Pneumonia, unspecified organism; E87.2 Acidosis; I10 Essential (primary) hypertension; E78.5 Hyperlipidemia, unspecified; R35.0 Frequency of micturition; N40.1 Benign prostatic hyperplasia with lower urinary tract symptoms; R65.20 Severe sepsis without septic shock; I48.2 Chronic atrial fibrillation; R19.7 Diarrhea, unspecified; Z79.82 Long term (current) use of aspirin